=== PATIENT | male | born 1965 ===

== ENCOUNTER 2017-05-05 12:34 | Emergency (ER) | payer MEDICAID ==
[~2017-05-05 12:34] MED LIST: Cyclobenzaprine 10 MG Tab PO ONE; Ketorolac 10 MG Tab PO ONE
[2017-05-05 12:40] VITALS: BP 146/98
[2017-05-05] MEDS ORDERED: Ketorolac 60 MG/2 ML SDV IM ONE (13:04)
--- NOTE | 2017-05-05 13:18 | EDM.PDOC ---
ED HPI GENERAL MEDICAL PROBLEM - General Chief Complaint: Back Pain or Injury Stated Complaint: back pain Time Seen by Provider: 05/05/17 13:00 Source of Information: Reports: Patient History Limitations: Reports: No Limitations, Language Barrier (Does speak Persian fairly well, seems to understand well) - History of Present Illness INITIAL COMMENTS - FREE TEXT/NARRATIVE: Patient presents today with complaints of back pain. He states he has had pain for the last 2 months but it became more severe last night to the point he can hardly move and couldn't sleep. he works at the local [employer] and does a lot of lifting and repetitive movements. Unable to perform his job duties today. Denies any specific injury. Unable to bend and getting up from a chair is difficult. No previous concerns with his back. Denies weakness in his legs but pain does radiate to his buttocks. Most of the pain is center in the lumbar area and surrounding musculature. Onset: Gradual Duration: Day(s):, Getting Worse Location: Reports: Back Quality: Reports: Sharp Severity: Severe Improves with: Reports: Rest Worsens with: Reports: Movement Context: Reports: Other (repetitive movements) Associated Symptoms: Reports: No Other Symptoms Middle Posterior Back Pain Score (Numeric/FACES): 8 - Related Data Allergies Allergy/AdvReac Type Severity Reaction Status Date / Time No Known Allergies Allergy Verified 05/05/17 12:41 Home Meds: Home Meds . [No Known Home Meds] 10/03/16 [History] Past Medical History - Past Health History Medical/Surgical History: Denies Medical/Surgical History - Past Surgical History Musculoskeletal Surgical History: Reports: Other (See Below) Social & Family History - Tobacco Use Smoking Status *Q: Current Every Day Smoker Years of Tobacco use: 25 Packs/Tins Daily: 0.5 - Recreational Drug Use Recreational Drug Use: No ED ROS GENERAL - Review of Systems Review Of Systems: See Below Constitutional: Denies: Weakness HEENT: Reports: No Symptoms Respiratory: Reports: No Symptoms Cardiovascular: Reports: No Symptoms Endocrine: Reports: No Symptoms GI/Abdominal: Denies: Nausea : Denies: Incontinence Musculoskeletal: Reports: Back Pain, Muscle Pain, Muscle Stiffness Neurological: Reports: Difficulty Walking. Denies: Numbness, Tingling Psychiatric: Reports: No Symptoms ED EXAM,LOWER BACK PAIN/INJURY - Physical Exam Exam: See Below Exam Limited By: No Limitations General Appearance: Alert, WD/WN, Mild Distress Neck: Normal Inspection, Supple, Non-Tender Respiratory/Chest: No Respiratory Distress, Lungs Clear, Normal Breath Sounds Cardiovascular: Regular Rate, Rhythm GI/Abdominal: Normal Bowel Sounds, Soft, Non-Tender Back Exam: Normal Inspection, Decreased Range of Motion, Muscle Spasm, Paraspinal Tenderness, Vertebral Tenderness Neurological: Alert, Normal Mood/Affect, No Motor/Sensory Deficits, Oriented x 3. No: Straight Leg Raise (L), Straight Leg Raise (R) Psychiatric: Normal Affect, Normal Mood Skin Exam: Warm, Dry Course - Vital Signs Last Recorded V/S: Last Vital Signs Temp 97.4 F 05/05/17 12:36 Pulse 109 H 05/05/17 12:36 Resp 16 05/05/17 12:36 BP 146/98 H 05/05/17 12:36 Pulse Ox 96 05/05/17 12:36 - Orders/Labs/Meds Meds: Medications Discontinued Medications Generic Name Dose Route Start Last Admin Trade Name Brooke PRN Reason Stop Dose Admin Cyclobenzaprine HCl 1 packet 05/05/17 13:53 05/05/17 13:59 Take Home: Cyclobenzaprine 10 Mg, 4 Tab Pack PO 05/05/17 13:54 1 packet ONETIME ONE Administration Ketorolac Tromethamine 60 mg 05/05/17 13:04 05/05/17 13:12 Toradol IM 05/05/17 13:05 60 mg ONETIME ONE Administration Ketorolac Tromethamine 1 packet 05/05/17 13:53 05/05/17 13:58 Take Home: Ketorolac 10 Mg, 4 Tab Pack PO 05/05/17 13:54 1 packet ONETIME ONE Administration Orphenadrine Citrate 60 mg 05/05/17 13:04 05/05/17 13:13 Norflex IM 05/05/17 13:05 60 mg NOW ONE Administration Departure - Departure Time of Disposition: 13:50 Disposition: Home, Self-Care 01 Clinical Impression: Back pain - Discharge Information Instructions: Back Pain, Adult, [id number] Referrals: PCP,None [Primary Care Provider] - Forms: ED Department Discharge Additional Instructions: 1. Rest 2. Heat or ice to low back for comfort/inflammation 3. Flexeril 10 mg every 8 hours for muscle spasms as needed 4. Toradol 10 mg every 6 hours for pain and inflammation as needed 5. Follow up in clinic on Saturday if continue to have pain as may need to refer to physical therapy 6. Call with any concerns.
[2017-05-05] MEDS ORDERED: Take Home: Cyclobenzaprine 10 MG Tab, 4 Tab Pack PO ONE (13:53)
[2017-05-05] MEDS ORDERED: Take Home: Ketorolac 10 MG Tab, 4 Tab Pack PO ONE (13:53)
== END 2017-05-05 14:06 | disposition home or self-care (01) ==
LOC: CC.ED 12:34
DX: M62.830 Muscle spasm of back (principal); F17.210 Nicotine dependence, cigarettes, uncomplicated
CPT/HCPCS: 96372; 99282; A9270; J1885; J2360